=== PATIENT | female | born 1950 | race Caucasian/White ===

== ENCOUNTER 2017-10-13 13:12 | Observation (INO) | payer OTHER ==
[~2017-10-13] VITALS: Ht 147.3 cm; Wt 59.5 kg
[2017-10-13 14:01] LABS: ABSOLUTE BASOPHIL COUNT 0 /CUMM (0.0-0.2); ABSOLUTE EOSINOPHIL COUNT 0.4 /CUMM (0.0-0.7); ABSOLUTE GRANULOCYTE CT 2.4 /CUMM (1.4-6.5); ABSOLUTE LYMPH COUNT 1.8 /CUMM (1.2-3.4); ABSOLUTE MONOCYTE COUNT 0.3 /CUMM (0.10-0.60); BASOPHIL % 0.6 % (0.0-2.0); EOSINOPHIL % 8.6 % (0-5); GRANULOCYTE % 48.5 % (42.2-75.2); HEMATOCRIT 39.1 % (37-47); MEAN CORPUSCULAR HGB 30.9 PG (27.0-31.0); MEAN CORPUSCULAR HGB CONC 33.7 G/DL (33.0-37.0); MEAN CORPUSCULAR VOLUME 91.5 FL (81.0-99.0); MEAN PLATELET VOLUME 7.3 FL (7.4-10.4); PLATELET COUNT 349 /CUMM (130-400); RBC DISTRIBUTION WIDTH 13.1 % (11.5-14.5); RED BLOOD CELL CT 4.27 /CUMM (4.20-5.40)
[2017-10-13 14:11] LABS: PT 10.3 SEC (9.4-12.5); PTT 32 SEC (25-37)
--- NOTE | 2017-10-13 14:34 | CT SCAN REPORT ---
EXAMINATION: CT HEAD WITHOUT CONTRAST CLINICAL INFORMATION: Difficulty with speech. Words scramble. Evaluate for infarct. COMPARISON: Brain MRI 09/29/2017. TECHNIQUE: Contiguous axial imaging was performed from the skull base to vertex without intravenous administration of contrast. DLP: 620.92 mGy-cm FINDINGS: There is no acute intracranial hemorrhage or abnormal extra-axial collection. No intracranial mass effect or midline shift. Lateral and third ventricles are normal. No hydroceles. Tidwell-white matter differentiation is grossly preserved and there is no evidence of acute territorial infarct. The calvarium and skull base are intact. Mastoid air cells and middle ear cavities are well-aerated. There is mild to moderate paranasal sinus disease. IMPRESSION: No evidence of acute territorial infarct or hemorrhage.
--- NOTE | 2017-10-13 14:34 | RADIOLOGY REPORT ---
EXAMINATION: XR CHEST, 2 VIEWS CLINICAL INFORMATION: Cough. COMPARISON: None. TECHNIQUE: PA and lateral views of the chest were obtained. FINDINGS: There is mild dependent atelectasis. Nipple shadows are present at the lung bases. No consolidation, pneumothorax, or pleural effusion. Cardiac size appears normal. There is mild tortuosity thoracic aorta. Pulmonary vasculature is unremarkable. Degenerative disc disease is present in the thoracic spine. Osteoarthritis is present in the acromioclavicular joints. IMPRESSION: Mild dependent atelectasis. No acute pulmonary findings.
--- NOTE | 2017-10-13 16:09 | ED NEURO DEFICIT/STROKE ---
History of Present Illness General Chief Complaint: Neuro Symptoms/ Deficit Stated Complaint: WEAKNESS/NAUSEA HX TIA PALMA Source: patient, family, old records Exam Limitations: no limitations Vital Signs & Intake/Output Vital Signs & Intake/Output Vital Signs Date Time Temp Pulse Resp B/P B/P Pulse O2 O2 Flow FiO2 Mean Ox Delivery Rate 10/13 1323 96.1 88 18 138/104 99 Room Air Allergies Coded Allergies: Penicillins (Severe, THROAT CLOSING 10/13/17) Triage Note: RECEIVED 66 YO FEMALE C/O DIZZINESS, LIGHTHEADEDNESS AND VERTIGO SYMPTOMS SINCE MAY 2017. PT REPORTS DIFFICULTY FINDING WORDS, MUCH WORSE SINCE WEDNESDAY WITH DIZZINESS TODAY AND LIGHHEADEDNESS. NO SLURRED SPEECH NOTED, NO UNILATERAL WEAKNESS NOTED, + GENERALIZED WEAKNESS. PT STATES "EVERYTHING IS OUT OF FOCUS". Triage Nurses Notes Reviewed? yes HPI: Patient presents with room spinning dizziness associated with nausea vomiting or gait abnormalities that started this morning. Patient states on Wednesday she woke up and just felt out of it. Patient cannot really describe what she means by that but did not feel well Wednesday or Wednesday and then this morning woke up with room spinning dizziness. Patient is also having weeping in her ears. Patient states she has a history of vertigo and when she gets it Antivert never helps. Patient had an MRI last week as part of the workup for this intermittent vertigo that she gets and it showed chronic microvascular changes and lacunar infarcts. Patient states each episode of vertigo that she gets gets slightly worse. Patient lives at home alone and her daughter checks in on her. Her daughter talked her last week and everything was normal however when she talked her today she's noticed that the patient was very slow to respond and her voice sounded very thick. Her daughter became concerned because that it is not her mother. Patient was brought in for evaluation. Past History Travel History Traveled to [place] past 21 day No Medical History Any Pertinent Medical History? see below for history Neurological: CVA'S NOTED ON MRI EENT: NONE Cardiovascular: NONE Respiratory: NONE Gastrointestinal: NONE Hepatic: NONE Renal: NONE Musculoskeletal: NONE Psychiatric: NONE Endocrine: NONE Blood Disorders: NONE Cancer(s): NONE Other Medical Hx: VERTIGO Surgical History Surgical History: non-contributory Psychosocial History What is your primary language Persian Tobacco Use: Quit >30 days ago ETOH Use: denies use Illicit Drug Use: denies illicit drug use Family History Hx Contributory? No Review of Systems Review of Systems Constitutional: Reports: no symptoms. EENTM: Reports: no symptoms. Respiratory: Reports: no symptoms. Cardiovascular: Reports: no symptoms. GI: Reports: see HPI, nausea, vomiting. Genitourinary: Reports: no symptoms. Musculoskeletal: Reports: no symptoms. Skin: Reports: no symptoms. Neurological/Psychological: Reports: see HPI. Hematologic/Endocrine: Reports: no symptoms. Immunologic/Allergic: Reports: no symptoms. All Other Systems: Reviewed and Negative Physical Exam Physical Exam General Appearance: well developed/nourished, alert, awake, anxious, moderate distress Head: atraumatic, normal appearance Eyes: Bilateral: PERRL, EOMI. Ears, Nose, Throat: normal ENT inspection, DECREASED HEARING Neck: normal inspection, supple, full range of motion Respiratory: normal breath sounds, chest non-tender, no respiratory distress, lungs clear Cardiovascular: regular rate/rhythm, normal peripheral pulses Gastrointestinal: normal bowel sounds, soft, non-tender, no organomegaly Back: normal inspection, normal range of motion Extremities: normal range of motion Psychiatric: awake, alert, oriented x 3 Cranial Nerves: normal hearing, normal speech, PERRL Coordination/Gait: ABD GAIT Core Measures CVA/TIA Diagnosis: Yes NIH Stroke Scale NIH Stroke Scale Response Value Level of Consciousness alert 0 LOC Questions answers both correctly 0 LOC Commands obeys both correctly 0 Best Gaze normal 0 Visual Pearson no visual loss 0 Facial Paresis normal 0 Motor Arm - Left no drift 0 Motor Arm - Right no drift 0 Motor Leg - Left no drift 0 Motor Leg - Right no drift 0 Limb Ataxia no ataxia 0 Sensory normal 0 Best Language no aphasia 0 Dysarthria normal articulation 0 Extinction and Inattention no neglect 0 Total 0 Date Last Known Well: 10/11/17 Time Last Known Well: 1000 Symptom Start Date: 10/11/17 Symptom Start Time: 1000 tPA Risk/Benefit discussion I have discussed the risks, benefits, and alternatives of Alteplase treatment including: - If given promptly, can resolve or have major improvement in stroke symptoms. - Bleeding (hemorrhage) is the most common risk that can occur. - Bleeding may occur into the brain and cause~long wall shear operator serious disability~ including - this is rare, affecting about 1% of patients. - Alternative treatments with proven benefit for patients with stroke include aspirin and care in a specialized unit where staff members pay careful attention to a variety of basic aspects of care. tPA given? No Reason tPA not given Medical Contraindication Sepsis Present: No Sepsis Focused Exam Completed? No Progress Differential Diagnosis: drug intoxication, electrolyte imbalance, intracranial Hem., intracranial mass/tumor, seizure disorder, mNIRE'S Plan of Care: Orders Procedure Date/time Status Heart Healthy Diet 10/14 B Active Patient Data 10/[address] in observation 10/13 170 Active ED Holding Orders 10/13 1706 Active Vital Signs 10/13 170 Active Code Status 10/13 1706 Active TROPONIN LEVEL 10/13 132 Complete PARTIAL THROMBOPLASTIN TIME 10/135 Complete PROTHROMBIN TIME 10/13 1324 Complete COMPREHENSIVE METABOLIC PANEL 10/13 1324 Complete CBC WITHOUT DIFFERENTIAL 10/13 1324 Complete EKG 10/13 132 Active Laboratory Tests 10/13/17 1350: Anion Gap 12, Estimated GFR > 60, BUN/Creatinine Ratio 18.3, Glucose 109 H, Calcium 9.8, Total Bilirubin 0.5, AST 28, ALT 35, Alkaline Phosphatase 62, Troponin I < 0.01, Total Protein 7.3, Albumin 4.3, Globulin 3.0, Albumin/ Globulin Ratio 1.4, PT 10.3, INR 0.95, APTT 32, CBC w Diff NO MAN DIFF REQ, RBC 4.27, MCV 91.5, MCH 30.9, MCHC 33.7, RDW 13.1, MPV 7.3 L, Gran % 48.5, Lymphocytes % 35.5, Monocytes % 6.8, Eosinophils % 8.6 H, Basophils % 0.6, Absolute Granulocytes 2.4, Absolute Lymphocytes 1.8, Absolute Monocytes 0.3, Absolute Eosinophils 0.4, Absolute Basophils 0 Radiology Impression: PATIENT: VINCE BROOKS PRESENT AGE: 66 PATIENT ACCOUNT NO: [id number] : 52 LOCATION: [facility] ORDERING PHYSICIAN: Braydon DOMINGUEZ SERVICE DATE: 10/13/17 EXAM TYPE: CAT - CT HEAD WO IV CONTRAST EXAMINATION: CT HEAD WITHOUT CONTRAST CLINICAL INFORMATION: Difficulty with speech. Words scramble. Evaluate for infarct. COMPARISON: Brain MRI 09/29/2017. TECHNIQUE: Contiguous axial imaging was performed from the skull base to vertex without intravenous administration of contrast. DLP: 620.92 mGy-cm FINDINGS: There is no acute intracranial hemorrhage or abnormal extra-axial collection. No intracranial mass effect or midline shift. Lateral and third ventricles are normal. No hydroceles. Tidwell-white matter differentiation is grossly preserved and there is no evidence of acute territorial infarct. The calvarium and skull base are intact. Mastoid air cells and middle ear cavities are well-aerated. There is mild to moderate paranasal sinus disease. IMPRESSION: No evidence of acute territorial infarct or hemorrhage. DICTATED BY: Teddy West MD DATE/TIME DICTATED:10/13/171427 MONKEY BREEDER:RAD.WHITT DATE/TIME TRANSCRIBED:10/13/171427 CONFIDENTIAL, DO NOT COPY WITHOUT APPROPRIATE AUTHORIZATION. <Electronically signed in Other Vendor System> SIGNED BY: Teddy West MD 10/13/171433 CXR Impression: PATIENT: VINCE BROOKS PRESENT AGE: 66 PATIENT ACCOUNT NO: [id number] : 52 LOCATION: [facility] ORDERING PHYSICIAN: Braydon DOMINGUEZ SERVICE DATE: 10/13/17 EXAM TYPE: RAD - XRY-CHEST XRAY, TWO VIEWS EXAMINATION: XR CHEST, 2 VIEWS CLINICAL INFORMATION: Cough. COMPARISON: None. TECHNIQUE: PA and lateral views of the chest were obtained. FINDINGS: There is mild dependent atelectasis. Nipple shadows are present at the lung bases. No consolidation, pneumothorax, or pleural effusion. Cardiac size appears normal. There is mild tortuosity thoracic aorta. Pulmonary vasculature is unremarkable. Degenerative disc disease is present in the thoracic spine. Osteoarthritis is present in the acromioclavicular joints. IMPRESSION: Mild dependent atelectasis. No acute pulmonary findings. DICTATED BY: Humza Akins MD DATE/TIME DICTATED:10/13/171428 MONKEY BREEDER:RAD.WHITT DATE/TIME TRANSCRIBED:10/13/171428 CONFIDENTIAL, DO NOT COPY WITHOUT APPROPRIATE AUTHORIZATION. <Electronically signed in Other Vendor System> SIGNED BY: Humza Akins MD 10/13/171433 Initial ED EKG: NSR, no ST T wave changes Departure Departure Disposition: STILL A PATIENT Condition: Stable Clinical Impression Primary Impression: Vertigo Referrals: Andrea Maldonado MD (PCP/Family) Departure Forms: Customer Survey General Discharge Information Observation Note Spoke With: Aries Jha MD Physician Advisor Notified: BOBBY COX,[facility] Patient In: Non-ED OBS Care Area Rationale for Observation: My rational for observation is as follows [IV fluids, antiemetics, Valium, neurology consultation, PT consultation, possible repeat MRI for her new symptoms.].
--- NOTE | 2017-10-13 17:51 | History & Physical ---
Delilah COX,[facility] 10/13/17 6828: General Information and [facility] MD Statement: I have seen and personally examined VINCE GUO and documented this H&P. The patient is a 66 year old F who presented with a patient stated chief complaint of [severe dizziness]. Source of Information: patient Exam Limitations: no limitations History of Present Illness: Ms. Guo a 66 year old female with past medical history significant for ADHD not on medication, hyperlipidemia not on medication, depression, right hand carpal tunnel, vertigo since May 2017. Patient reported frequent episodes of vertigo since May with no precipitating factors. Patient used to have sudden onset of dizziness "room spining", severe nausea and vomiting, right ear tinnitus however patient reported previous history prior of her tinnitus prior to vertigo that's getting worse with time, she reported as "double tanning for in my right ear". This episode started on Wednesday, vertigo positional and non-positional, nausea, vomiting, right ear tinnitus, generalized weakness, episodic confusion, headache. Patient didn't use any medication, today she noticed some blurry vision while watching TV and generalized weakness and decided to come to ED for evaluation. Patient denied any focal weakness, numbness, syncopal attack, falls , chest pain, palpitation, shortness of breath. Patient denied any previous hospitalization, started with Davian Maldonado MD PCP for a year and he ordered MRI in August 2017 which showed chronic lacunar infarction in the right basal ganglia. Patient and ex-smoker quit year ago, has history of 50 years smoking, half pack per day. Occasional alcohol use, no illicit drugs. Patient reported family history of severe vertigo in her father, melanoma. Allergies/Medications Allergies: Coded Allergies: Penicillins (Severe, THROAT CLOSING 10/13/17) Past History Travel History Traveled to [place] past 21 day No Medical History Neurological: vertigo, CVA'S NOTED ON MRI EENT: NONE Cardiovascular: NONE Respiratory: NONE Gastrointestinal: NONE Hepatic: NONE Renal: NONE Musculoskeletal: NONE Psychiatric: depression, ADHD Endocrine: NONE Blood Disorders: NONE Cancer(s): NONE Surgical History Surgical History: none Past Family/Social History Psychosocial History Where do you live? Home Who Do You Live With? self Services at Home: None Primary Language: Icelandic Smoking Status: Former Smoker ETOH Use: occasional use Illicit Drug Use: denies illicit drug use Living Will? no Functional Ability ADLs Independent: dressing, eating, toileting, bathing. Ambulation: independent IADLs Independent: shopping, housework, finances, food prep, telephone, transportation , medication admin. Review of Systems Review of Systems Constitutional: Reports: see HPI, weakness. Denies: chills, diaphoresis, fever. EENTM: Reports: blurred vision. Denies: eye drainage, eye tearing, nasal pain. Cardiovascular: Denies: chest pain, edema, orthopena, palpitations, peripheral edema, syncope. Respiratory: Reports: cough. Denies: short of breath, sputum production, wheezing. GI: Denies: abdominal pain, constipation, diarrhea, nausea, vomiting. Genitourinary: Denies: discharge, frequency, hematuria. Musculoskeletal: Denies: back pain, joint pain, joint swelling, muscle pain. Skin: Denies: erythema, rash. Neurological/Psychological: Reports: confusion, headache. Denies: dementia, numbness. Hematologic/Endocrine: Denies: bruising, bleeding. Exam & Diagnostic Data Last 24 Hrs of Vital Signs/I&O Vital Signs Date Time Temp Pulse Resp B/P B/P Pulse O2 O2 Flow FiO2 Mean Ox Delivery Rate 10/13 1836 97.2 75 18 136/73 100 10/13 1805 99 Room Air 10/13 1323 96.1 88 18 138/104 99 Room Air Intake & Output 10/13 1600 10/13 0800 10/13 0000 Intake Total Output Total Balance Patient 58.513 kg Weight Weight Estimated Measurement Method Physical Exam General Appearance Alert, Oriented X3, Cooperative, No Acute Distress Skin No Rashes Skin Temp/Moisture Exam: Warm/Dry HEENT Atraumatic, PERRLA, EOMI, Mucous Membr. moist/pink, no nystagmus Neck Supple, +2 Carotid Pulse wo Bruit Cardiovascular Regular Rate, Normal S1, Normal S2, No Murmurs Lungs Clear to Auscultation, Normal Air Movement Abdomen Normal Bowel Sounds, Soft, No Tenderness Neurological Normal Gait, Normal Speech, Strength at 5/5 X4 Ext, Normal Tone, Sensation Intact, Cranial Nerves 3-12 NL, Reflexes 2+, finger to nose test negative Dysdiadochokinesia negative Extremities No Clubbing, No Cyanosis, No Edema, Normal Pulses, No Tenderness/ Swelling Assessment/Plan Assessment: Ms. Pinciaro a 66 year old female with past medical history significant for ADHD not on medication, hyperlipidemia not on medication, depression, right hand carpal tunnel, vertigo since May 2017. Patient reported an episode that started on Wednesday, vertigo positional and non-positional, nausea, vomiting, right ear tinnitus, generalized weakness, episodic confusion, headache. Vital signs are stable, labs are within normal, chest x-ray showed some atelectasis but no acute changes, CT head negative for any acute intracranial changes. Patient received Valium in ED with resolution of her symptoms. Patient will be admitted to telemetry floor to rule out any cardiac origin of dizziness such as arrhythmia, TIA or posterior circulation stroke however her symptoms and exam more towards inner ear etiology like meniere's disease. Neurological exam including cerebellar function and Romberg sign negative. Problem list #Vertigo #Tinnitus #Mixed dyslipidemia #History of lacunar infarction in right basal ganglia Plan -Observe in telemetry floor -Vitals every shift -Aspirin, Lipitor -Check lipid profile -Neurology consultation -Carotid ultrasound -Will contact neuroradiology tomorrow for optimal study for vestibular neuroma and probably CTA or MRA -Patient passed bedside swallow eval -Heart healthy diet -PT evaluation for vestibular rehabilitation -DVT prophylaxis Lovenox -Code full As Ranked By This Provider Problem List: 1. Vertigo Observation Initial Note - I have personally examined VINCE GUO on 10/13/17 at 2013. The disposition of VINCE GUO is uncertain at this time and before a determination can be made, she requires a period of observation for the following reasons [dizziness] Core Measures/Misc (01/17) Acute Coronary Syndrome ACS Diagnosis: No Congestive Heart Failure Congestive Heart Failure Diagnosis No Cerebrovascular Accident CVA/TIA Diagnosis: No Date Last Known Well: 10/11/17 Time Last Known Well: 1000 Symptom Start Date: 10/11/17 Symptom Start Time: 1000 VTE (View Protocol) VTE Risk Factors Age>40 No Mechanical VTE Prophylaxis d/t N/A MechProphylax Ordered No VTE Pharm Prophylaxis d/t NA PharmProphylax ordered Sepsis (View protocol) Sepsis Present: No If YES complete Sepsis Event Note If YES complete Sepsis Event Note Aries Jha MD 10/13/17 5295: General Information and HPI Allergies/Medications Home Med list Alprazolam (Alprazolam Odt) 0.25 MG TAB.RAPDIS 1 TAB PO BID PRN Dizziness . Aspirin (Ecotrin*) 81 MG TABLET.DR 1 TAB PO DAILY HEART/BLOOD (Reported) Atorvastatin Calcium 40 MG TABLET 40 MG PO 1700 Cholesterol . Loratadine (Claritin) 10 MG TABLET 1 TAB PO DAILY Meniere's Disease . Multiple Vitamin (Multivitamins) 1 EACH TABLET 1 TAB PO DAILY SUPPLEMENT ( Reported) Ondansetron (Zofran Odt) 4 MG TAB.RAPDIS 1 TAB SL TID PRN Dizziness or nausea . Core Measures/Misc (01/17) Sepsis (View protocol) If YES complete Sepsis Event Note If YES complete Sepsis Event Note Attending MD Review Statement Attending Statement Attending MD Statement: examined this patient, discuss w/resident/PA/TELEGRAPH INSPECTOR, agreed w/resident/PA/TELEGRAPH INSPECTOR, reviewed EMR data (avail), reviewed images, amended to note Attending Assessment/Plan: The patient is a 66 yo female with h/o ADHD (no meds), hyperlipidemia, and depression who presented in the ED with c/o severe vertigo. The patient describes symptoms since 05/2017 and did undergo an outpatient MRI via her PCP ( Dr. Maldonado) in 09/17. The study did show chronic lacunar infarcts in the right basal ganglia. She denied any focal symptoms (generalized weakness noted) although states her balance has been off. She lives alone and symptoms have become more severe. She has had some right ear tinnitus and nausea. She has been taking ASA 81 mg daily x 2 weeks. Daughter noted some word finding difficulties. She has tried Antivert with no relief. Her daughter noted some speech abnormality today and became concerned. Physical Exam: VS: T 97.2, P 75, R 18, BP 136/74, PO 99-100% RA HEENT: eyes- PERRLA, EOMI w/o nystagmus jai- normal mucosa Neck: no bruits, JVD or adenopathy Chest: clear Cor: RRR nl S1, S2 w/o murm Abd: BS+, soft, NT, - HSM Ext: no edema Neuro: alert & oriented x 3- symptoms improved post Ativan- motor/sensory/DTR's/ FTN/HTS intact- gait not tested by me (abnormal per ED), - [place]-Halpike maneuver. Labs/Tests- as above Impression/Plan: #Severe Vertigo/Loss of Balance/Tinnitus-symptoms have been ongoing since 05/20 and worse just prior to admission. No nystagmus on exam. Duration of symptoms would suggest against BPPV. She did have MRI last week showing right basal ganglia infarcts and has worsening symptoms. Would still consider posterior circulation CVA as possible cause. Although no reported loss of hearing, acoustic neuroma is a possibility as well as Meniere's Disease. Plan: Will bring in as OBServation patient to telemetry floor. Monitor VS and q4h neuro checks. Observe for arrhythmia. Continue ASA. Will discuss prior MRI with Neuroradiology in morning and consider repeat MRI as symptoms are worse- will also see if specific MRI of inner ear may be useful in excluding acoustic neuroma. Neurology and PT consults. Lipitor' Diazepam for severe vertigo. #Hyperlipidemia- noted on OP labs. LDL today is 157 with Total chol 267 and HDL 84. Plan: Agree with Lipitor.
[2017-10-13] MEDS ORDERED: MULTIVITAMINS1 EAC9 PO (19:49)
[2017-10-13] MEDS ORDERED: BUPROPION XL300 M1 PO (19:49)
[2017-10-13] MEDS ORDERED: ASPIRIN EC81 M1 PO (19:50)
[2017-10-13 22:57] VITALS: BP 116/70
[2017-10-14 06:16] VITALS: BP 120/50
--- NOTE | 2017-10-14 08:08 | ULTRASOUND REPORT ---
EXAMINATION: DUPLEX BILATERAL CAROTID ULTRASOUND CLINICAL INFORMATION: Dizziness. COMPARISON: No similar prior examinations available for comparison. TECHNIQUE: Real-time ultrasound and Doppler techniques (integrating B-mode 2D vascular images, Doppler spectral analysis and color flow Doppler imaging) were utilized to interrogate the extracranial carotid and vertebral arteries bilaterally. The degree of stenosis determined by criteria similar to NASCET. FINDINGS: Right side: 1. No appreciable plaque is seen in the ECA/ICA region. 2. The common carotid artery velocity is 83 cm/s. 3. The internal carotid artery velocities are 72 cm/s systolic and 29 cm/s diastolic. 4. The external carotid artery velocity is 111 cm/s. Left side: 1. No appreciable plaque is seen in the ECA/ICA region. 2. The common carotid artery velocity is 97 cm/s. 3. The internal carotid artery velocities are 69 cm/s systolic and 19 cm/s diastolic. 4. The external carotid artery velocity is 67 cm/s. ADDITIONAL FINDINGS: 1. The vertebral arteries show antegrade flow. IMPRESSION: 1. RIGHT: No significant stenosis of the proximal right internal carotid artery by velocity criteria. 2. LEFT: No significant stenosis of the proximal left internal carotid artery by velocity criteria. 3. No evidence for hemodynamically significant stenosis in the external carotid arteries.
--- NOTE | 2017-10-14 08:19 | PN- Housestaff ---
See Addendum Subjective Follow-up For: Vertigo Tele-Events Since Last Visit: Normal sinus rhythm, 6080 Subjective: Patient was admitted last night with vertigo. She has been having these symptoms about once every week or so since May. She describes getting dizzy like the room is spinning with nausea, vomiting, and tinnitus in the right ear. This tinnitus have been has been going on for about 10 years. In between the episodes she feels perfectly normal without any symptoms or issues with balance or coordination. This morning, her symptoms are resolved and she feels perfectly fine. Review of Systems Constitutional: Reports: no symptoms. EENTM: Reports: no symptoms. Cardiovascular: Reports: no symptoms. Respiratory: Reports: no symptoms. Gastrointestinal: Reports: no symptoms. Genitourinary: Reports: no symptoms. Musculoskeletal: Reports: no symptoms. Skin: Reports: no symptoms. Neurological/Psychological: Reports: no symptoms. Hematologic/Endocrine: Reports: no symptoms. Immunologic/Allergic: Reports: no symptoms. Objective Last 24 Hrs of Vital Signs/I&O Vital Signs Date Time Temp Pulse Resp B/P B/P Pulse O2 O2 Flow FiO2 Mean Ox Delivery Rate 10/14 0616 97.9 71 18 120/50 93 10/13 2257 97.7 80 18 116/70 95 Room Air 10/13 2141 Room Air 10/13 2029 98.6 88 16 116/63 95 Room Air 10/13 1836 97.2 75 18 136/73 100 10/13 1805 99 Room Air 10/13 1323 96.1 88 18 138/104 99 Room Air Intake & Output 10/14 1600 10/14 0800 10/14 0000 Intake Total 120 1120 Output Total Balance 120 1120 Intake, IV 1000 Intake, Oral 120 120 Patient 57.153 kg Weight Weight Bed scale Measurement Method Physical Exam General Appearance: Alert, Oriented X3, Cooperative, No Acute Distress HEENT: Horizontal nyastagmus without vertical nystagmus, head impulse test negative. No focal neurological deficits. Cardiovascular: Regular Rate, Normal S1, Normal S2 Lungs: Clear to Auscultation, Normal Air Movement Extremities: No Edema, Normal Pulses, No Tenderness/Swelling Current Medications: Current Medications Sig/Angle Start time Last Medication Dose Route Stop Time Status Admin Acetaminophen 650 MG Q6P PRN 10/13 1914 AC PO Aspirin 0 .STK-MED ONE 06/13 1921 DC PO Aspirin 81 MG DAILY 10/13 1908 AC 10/14 PO 0816 Atorvastatin Calcium 20 MG 1700 10/14 1700 DC PO Atorvastatin Calcium 40 MG 10/14 1700 AC PO Diazepam 0 .STK-MED ONE 10/13 1717 DC PO Diazepam 5 MG ONCE ONE 10/13 1630 DC 10/13 PO 10/13 1631 1712 Enoxaparin Sodium 40 MG DAILY 10/14 0900 AC 10/14 SC 0817 Ondansetron HCl 0 .STK-MED ONE 10/13 1717 DC .ROUTE Ondansetron HCl 4 MG ONCE ONE 10/13 1630 DC 10/13 IV 10/13 1631 1753 Sodium Chloride 1,000 ML BOLUS ONE 10/13 1630 DC 10/13 IV 10/13 1729 1753 Last 24 Hrs of Lab/Surendra Results Last 24 Hrs of Labs/Mics: Laboratory Tests 10/13/17 1350: Anion Gap 12, Estimated GFR > 60, BUN/Creatinine Ratio 18.3, Glucose 109 H, Calcium 9.8, Total Bilirubin 0.5, AST 28, ALT 35, Alkaline Phosphatase 62, Troponin I < 0.01, Total Protein 7.3, Albumin 4.3, Globulin 3.0, Albumin/ Globulin Ratio 1.4, Triglycerides 134, Cholesterol 267 H, LDL Cholesterol, Calc 157 H, HDL Cholesterol 84 H, Cholesterol/HDL Ratio 3, TSH 1.270, PT 10.3, INR 0.95, APTT 32, CBC w Diff NO MAN DIFF REQ, RBC 4.27, MCV 91.5, MCH 30.9, MCHC 33.7, RDW 13.1, MPV 7.3 L, Gran % 48.5, Lymphocytes % 35.5, Monocytes % 6.8, Eosinophils % 8.6 H, Basophils % 0.6, Absolute Granulocytes 2.4, Absolute Lymphocytes 1.8, Absolute Monocytes 0.3, Absolute Eosinophils 0.4, Absolute Basophils 0 Assessment/Plan Assessment: Ms. Guo s a 66 yo female with h/o ADHD (no meds), hyperlipidemia, and depression who presented in the ED with c/o severe vertigo. Problem List: 1. Vertigo #Vertigo: Patient presents with episodic vertigo over the past 6 months with complete resolution of symptoms in between episodes. The episodes involve dizziness with room spinning, tinnitus, nausea, vomiting, forcing her to lie down. This is highly suspicious for Mnire's disease. She does have chronic basal ganglia infarcts on MRI in August of this year but does not have any symptoms from this right now. Her neuro exam is benign including HINTS exam. Carotid Dopplers were negative. -MRI with and without contrast head with internal auditory protocol -Neurology recommendations appreciated -Ondansetron for nausea -Consider meclizine for dizziness #Chronic medical problems: -Continue other medications DVT prophylaxis with enoxaparin Heart healthy diet Full code Problem List: 1. Vertigo Pain Ratin Pain Location: no Pain Goal: Remain pain free Pain Plan: see a/p Tomorrow's Labs & Rationales: no
--- NOTE | 2017-10-14 13:06 | MRI REPORT ---
MR BRAIN WITHOUT AND WITH CONTRAST CLINICAL INFORMATION: Severe right ear tinnitus and vertigo. COMPARISON: Brain MRI September 29, [address] October 13, 2017. TECHNIQUE: MRI of the brain was obtained using routine sequences before and after the intravenous administration of 6 mL of Gadavist. FINDINGS: The inner ear structures including the cochlea, vestibules, and semicircular canals exhibit preserved CSF signal intensity with no pathologic enhancement. The vestibular aqueducts are not enlarged. Cranial nerves VII and VIII complexes are normal in morphology. No enhancing CP angle/retrocochlear lesion. Small superiorly projecting left jugular bulb diverticulum. There is no pathologic intracranial enhancement. Small incidental developmental venous anomaly within the high left frontal lobe. Etat crible appearance of the basal ganglia bilaterally as the sequela of chronic hypertension. No acute infarct on diffusion-weighted imaging. No hydrocephalus, extra-axial surface collection, or herniation. There are T2 signal changes within the central lyudmila and to lesser extent the supratentorial white matter, most likely chronic microangiopathy. The midline intracranial structures are normal. Cerebellar tonsils are normally positioned. Craniocervical junction is normal. Osseous marrow signal intensity remains homogeneous. No significant soft tissue abnormality is appreciated. IMPRESSION: - No acute intracranial findings. No acute infarcts, no enhancing lesions, and no retrocochlear pathology. - Chronic microangiopathy. Etat crible appearance of the basal ganglia bilaterally as the sequela of chronic hypertension.
[2017-10-14 14:00] VITALS: BP 124/78
--- NOTE | 2017-10-14 15:50 | PN- Student ---
Subjective Subjective: Ms. Rasmussen is a 66 y/o female with a PMH of ADHD (not on medications), HLD, depression, R sided deafness and R sided chronic tinnitus, that comes to the ED because of severe vertigo. On May she started having episodes of feeling like "the room was spinning", accompanied by headaches, (which she describes as "hangover headaches") that covered her entire head, nausea, vomiting, diarrhea and photophobia. These headaches weren't preceded by any other symptoms, were only relieved by lying down and closing her eyes and were worsened by movement. She denies any phonophobia, but agrees to confusion, weakness and changes in vision. The episodes will last from hours up to 3 days. After this episode of 3 days (which ocurred last month), she went to her PCP who ordered an MRI without contrast that showed chronic lacunar infarction in the right basal ganglia. Patient states that she has always been hard of hearing, since an early age and when she went to the doctor as a grownup to check her hearing, she had lost 75% of her hearing, which only worsened as the years went by until a couple of years ago in which she lost her hearing completely. Patient also states that she has had tinnitus for 10 yrs and that for approximately one year, she hears like a double frequency of sounds ("instead of one tuning fork, I started hearing two). She said that sometimes it would wake her up from her sleep, and that she has tinnitus /. PMH: ADHD, depression, HLD, CVA's noted on MRI, migraines (in her 20's), "pains and needles" pain in her right hand and wrist after continuous activity. Allergies: Penicillin (anaphylaxis) MEDS: Aspirin (Ecotrin*) 81 MG TABLET.DR 1 TAB PO DAILY HEART/BLOOD (Reported) Bupropion HCl (Bupropion XL) 300 MG TAB.ER.24H 1 TAB PO DAILY DEPRESSION ( Reported) Multiple Vitamin (Multivitamins) 1 EACH TABLET 1 TAB PO DAILY SUPPLEMENT ( Reported) FH: Dad, severe vertigo, melanoma SH: Tonsillectomy, adenoidectomy SH: 25 pack yrs, quit a yr ago, social drinker, denies illicit drug use. 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 ROS: Pertinent positives and negatives on HPI. Rest is negative. Objective Objective: Vital Signs Date Time Temp Pulse Resp B/P B/P Pulse O2 O2 Flow FiO2 Mean Ox Delivery Rate 10/14 1400 97.9 62 20 124/78 96 10/14 0800 Room Air 10/14 0616 97.9 71 18 120/50 93 10/13 2257 97.7 80 18 116/70 95 Room Air 10/13 2141 Room Air 10/13 2029 98.6 88 16 116/63 95 Room Air 10/13 1836 97.2 75 18 136/73 100 10/13 1805 99 Room Air ED Intake and Output 10/14 0000 10/13 1200 Intake Total 1120 Output Total Balance 1120 Intake, IV 1000 Intake, Oral 120 Patient 126 lb Weight Weight Bed scale Measurement Method PE: Patient is an amiable lady, alert, cooperative and oriented x3. Normal S1 and S2 were heard with no additional murmurs. Pulse was regular and +2. On lung auscultation, vesicular sounds were heard. Skin was warm, dry with no visible rashes. Abdomen was soft, nontender, with no rebound or guarding. Normal bowel sounds were heard. CN III- were normal. HINTS exam was non conclusive. Results Results: Laboratory Tests 10/13/17 1350: Anion Gap 12, Estimated GFR > 60, BUN/Creatinine Ratio 18.3, Glucose 109 H, Calcium 9.8, Total Bilirubin 0.5, AST 28, ALT 35, Alkaline Phosphatase 62, Troponin I < 0.01, Total Protein 7.3, Albumin 4.3, Globulin 3.0, Albumin/ Globulin Ratio 1.4, Triglycerides 134, Cholesterol 267 H, LDL Cholesterol, Calc 157 H, HDL Cholesterol 84 H, Cholesterol/HDL Ratio 3, TSH 1.270, PT 10.3, INR 0.95, APTT 32, CBC w Diff NO MAN DIFF REQ, RBC 4.27, MCV 91.5, MCH 30.9, MCHC 33.7, RDW 13.1, MPV 7.3 L, Gran % 48.5, Lymphocytes % 35.5, Monocytes % 6.8, Eosinophils % 8.6 H, Basophils % 0.6, Absolute Granulocytes 2.4, Absolute Lymphocytes 1.8, Absolute Monocytes 0.3, Absolute Eosinophils 0.4, Absolute Basophils 0 10/13/17 1325: Lyme Disease Antibody Pending IMAGING: CXR: IMPRESSION: Mild dependent atelectasis. No acute pulmonary findings. HEAD CT: IMPRESSION: No evidence of acute territorial infarct or hemorrhage. CAROTID DOPPLER US: IMPRESSION: 1. RIGHT: No significant stenosis of the proximal right internal carotid artery by velocity criteria. 2. LEFT: No significant stenosis of the proximal left internal carotid artery by velocity criteria. 3. No evidence for hemodynamically significant stenosis in the external carotid arteries. HEAD MRI: IMPRESSION: - No acute intracranial findings. No acute infarcts, no enhancing lesions, and no retrocochlear pathology. - Chronic microangiopathy. Etat crible appearance of the basal ganglia bilaterally as the sequela of chronic hypertension. Assessment/Plan Assessment: Ms. Rasmussen is a 66 y/o female with a PMH of ADHD (not on medications), HLD, depression, R sided deafness and R sided chronic tinnitus, that comes to the ED because of severe vertigo. On May she started having episodes of feeling like "the room was spinning", accompanied by headaches, (which she describes as "hangover headaches") that covered her entire head, nausea, vomiting, diarrhea and photophobia. These headaches weren't preceded by any other symptoms, were only relieved by lying down and closing her eyes and were worsened by movement. She denies any phonophobia, but agrees to confusion, weakness and changes in vision. The episodes will last from hours up to 3 days. Problem list and plan: * Severe vertigo accompanied by headaches, N/V/D: Differential diagnosis include : vestibular migraines, Mnire's disease, acute stroke or APV. HINTS exam was performed and I couldn't find anything that would suggest an acute stroke (no bidirectional nystagmus, normal test of skew) or APV (no unidirectional nystagmus, normal head impulse test). Also, MRI didn't show evidence of stroke ( it did show etat crible, which is confusing as patient doesn't have a history of HTN). Mnire's disease seems more likely as patient has had tinnitus for a decade and complete loss of hearing. Also, it presents with a genetic predisposition and her father had a history of severe vertigo as well. Moreover, patient states accompanying headache with these episodes and is known that migraine is more common in patients with Mnire's. Nausea and vomiting is associated with Mnire's disease, but the episodes don't last more than 24 hrs and our patient states up to 3 days duration of her symptoms. On the other hand, the photophobia, N/V/D, speech disturbances, motor weakness, visual changes and duration of episodes, point more to a vestibular migraine. The headache seems to be generalized to her whole head though, which is uncommon with migraine headaches. Furthermore, although tinnitus is commonly associated with vestibular migraines, loss of hearing is not. Neurology consult was requested. Awaiting for their input before discharge. For now, administer Ondansetron for nausea and Meclizine for dizziness as needed. * HLD: Patient's cholesterol levels were high, so Lipitor was started. Patient should follow a heart healthy diet and follow up with her PCP. * Depression: Continue home meds.
--- NOTE | 2017-10-14 16:21 | Cons- Neurology ---
General Information and HPI Consulting Request Date of Consult: 10/14/17 Requested By: Barbara Munoz MD History of Present Illness: 66-year-old female has had repetitive episodes of vertigo over approximately the past 6 months These episodes are relatively stereotyped She has very quick onset of severe vertigo accompanied by imbalance and persistent vomiting There no clear-cut precipitating or aggravating factors She has hearing loss on the right side which she stated was present since childhood years but has been progressive recently She also has persistent tinnitus on that side which may increase in intensity when she has a vertiginous episode Episodes usually last 1-3 days in duration There's been one episode of mild head trauma She usually does not fall since walking is very limited during the vertiginous event Allergies/Medications Allergies: Coded Allergies: Penicillins (Severe, THROAT CLOSING 10/13/17) Home Med List: Aspirin (Ecotrin*) 81 MG TABLET.DR 1 TAB PO DAILY HEART/BLOOD (Reported) Bupropion HCl (Bupropion XL) 300 MG TAB.ER.24H 1 TAB PO DAILY DEPRESSION ( Reported) Multiple Vitamin (Multivitamins) 1 EACH TABLET 1 TAB PO DAILY SUPPLEMENT ( Reported) Current Medications: Current Medications Sig/Angle Start time Last Medication Dose Route Stop Time Status Admin Acetaminophen 650 MG Q6P PRN 10/13 1915 AC PO Aspirin 0 .STK-MED ONE 10/13 1921 DC PO Aspirin 81 MG DAILY 10/13 1908 AC 10/14 PO 0816 Atorvastatin Calcium 20 MG 1700 10/14 1700 DC PO Atorvastatin Calcium 40 MG 1700 10/14 1700 AC PO Diazepam 0 .STK-MED ONE 10/13 1717 DC PO Diazepam 5 MG ONCE ONE 10/13 1630 DC 10/13 PO 10/13 1631 1712 Enoxaparin Sodium 40 MG DAILY 10/14 0900 AC 10/14 SC 0817 Ondansetron HCl 0 .STK-MED ONE 10/13 1717 DC .ROUTE Ondansetron HCl 4 MG ONCE ONE 10/13 1630 DC 10/13 IV 10/13 1631 1753 Sodium Chloride 1,000 ML BOLUS ONE 10/13 1630 DC 10/13 IV 10/13 1729 1753 Review of Systems Review of Systems: No headache, diplopia, speech or swallowing difficulty Weight increase 15 pounds since she stopped smoking, no chest pain, shortness of breath, abdominal pain No incontinence, significant swelling, focal weakness Other systems reviewed and negative Past History Travel History Traveled to [place] past 21 day No Medical History Neurological: vertigo, CVA'S NOTED ON MRI EENT: NONE Cardiovascular: NONE Respiratory: NONE Gastrointestinal: NONE Hepatic: NONE Renal: NONE Musculoskeletal: NONE Psychiatric: depression, ADHD Endocrine: NONE Blood Disorders: NONE Cancer(s): NONE Other Medical Hx: VERTIGO Surgical History Surgical History: 1 Psychosocial History Where Do You Live? Home Who Do You Live With? self Services at Home: None Primary Language: Ivorian Smoking Status: Former Smoker ETOH Use: occasional use Illicit Drug Use: denies illicit drug use Living Will? no Functional Ability ADLs Independent: dressing, eating, toileting, bathing. Ambulation: independent IADLs Independent: shopping, housework, finances, food prep, telephone, transportation , medication admin. Exam & Diagnostic Data Vital Signs and I&O Vital Signs Date Time Temp Pulse Resp B/P B/P Pulse O2 O2 Flow FiO2 Mean Ox Delivery Rate 10/14 1400 97.9 62 20 124/78 96 10/14 0800 Room Air 10/14 0616 97.9 71 18 120/50 93 10/13 2257 97.7 80 18 116/70 95 Room Air 10/13 2141 Room Air 10/13 2029 98.6 88 16 116/63 95 Room Air 10/13 1836 97.2 75 18 136/73 100 10/13 1805 99 Room Air Intake & Output 10/14 1600 10/14 0800 10/14 0000 Intake Total 454 283 5652 Output Total Balance 617 302 2997 Intake, IV 1000 Intake, Oral 480 120 120 Patient 126 lb Weight Weight Bed scale Measurement Method Physical Exam: Alert and oriented Language functions fund of knowledge attention span concentration recall intact Heart sounds normal no carotid bruits distal pulses intact Extraocular movements full pupils equal reactive fundi benign visual french intact no facial weakness or facial sensory loss palate tongue and shoulders intact Hearing impaired on the right side Normal tone and strength upper and lower extremities No sensory loss to light touch Deep tendon reflexes 1+ bilateral Coordinative functions and gait intact Last 48 Hours of Lab Results: Laboratory Tests 10/13 10/13 1350 1325 Chemistry Sodium (137 - 145 mmol/L) 141 Potassium (3.5 - 5.1 mmol/L) 4.3 Chloride (98 - 107 mmol/L) 103 Carbon Dioxide (22 - 30 mmol/L) 27 Anion Gap (5 - 16) 12 BUN (7 - 17 mg/dL) 11 Creatinine (0.5 - 1.0 mg/dL) 0.6 Estimated GFR (>60 ml/min) > 60 BUN/Creatinine Ratio (7 - 25 %) 18.3 Glucose (65 - 99 mg/dL) 109 H Calcium (8.4 - 10.2 mg/dL) 9.8 Total Bilirubin (0.2 - 1.3 mg/dL) 0.5 AST (14 - 36 U/L) 28 ALT (9 - 52 U/L) 35 Alkaline Phosphatase (<127 U/L) 62 Troponin I (< 0.11 ng/ml) < 0.01 Total Protein (6.3 - 8.2 g/dL) 7.3 Albumin (3.5 - 5.0 g/dL) 4.3 Globulin (1.9 - 4.2 gm/dL) 3.0 Albumin/Globulin Ratio (1.1 - 2.2 %) 1.4 Triglycerides (<150 mg/dL) 134 Cholesterol (<200 MG/DL) 267 H LDL Cholesterol, Calc (65 - 129 mg/dL) 157 H HDL Cholesterol (40 - 60 mg/dL) 84 H Cholesterol/HDL Ratio (0.00 - 4.23 %) 3 TSH (0.270 - 4.200 uIU/mL) 1.270 Coagulation PT (9.4 - 12.5 SEC) 10.3 INR (0.90 - 1.19) 0.95 APTT (25 - 37 SEC) 32 Hematology CBC w Diff NO MAN DIFF REQ WBC (4.8 - 10.8 /CUMM) 5.0 RBC (4.20 - 5.40 /CUMM) 4.27 Hgb (12.0 - 16.0 G/DL) 13.2 Hct (37 - 47 %) 39.1 MCV (81.0 - 99.0 FL) 91.5 MCH (27.0 - 31.0 PG) 30.9 MCHC (33.0 - 37.0 G/DL) 33.7 RDW (11.5 - 14.5 %) 13.1 Plt Count (130 - 400 /CUMM) 349 MPV (7.4 - 10.4 FL) 7.3 L Gran % (42.2 - 75.2 %) 48.5 Lymphocytes % (20.5 - 51.1 %) 35.5 Monocytes % (1.7 - 9.3 %) 6.8 Eosinophils % (0 - 5 %) 8.6 H Basophils % (0.0 - 2.0 %) 0.6 Absolute Granulocytes (1.4 - 6.5 /CUMM) 2.4 Absolute Lymphocytes (1.2 - 3.4 /CUMM) 1.8 Absolute Monocytes (0.10 - 0.60 /CUMM) 0.3 Absolute Eosinophils (0.0 - 0.7 /CUMM) 0.4 Absolute Basophils (0.0 - 0.2 /CUMM) 0 Serology Lyme Disease Antibody Pending Imaging/Other Studies: MRI brain INDINGS: The inner ear structures including the cochlea, vestibules, and semicircular canals exhibit preserved CSF signal intensity with no pathologic enhancement. The vestibular aqueducts are not enlarged. Cranial nerves VII and VIII complexes are normal in morphology. No enhancing CP angle/retrocochlear lesion. Small superiorly projecting left jugular bulb diverticulum. There is no pathologic intracranial enhancement. Small incidental developmental venous anomaly within the high left frontal lobe. Etat crible appearance of the basal ganglia bilaterally as the sequela of chronic hypertension. No acute infarct on diffusion-weighted imaging. No hydrocephalus, extra-axial surface collection, or herniation. There are T2 signal changes within the central lyudmila and to lesser extent the supratentorial white matter, most likely chronic microangiopathy. The midline intracranial structures are normal. Cerebellar tonsils are normally positioned. Craniocervical junction is normal. Osseous marrow signal intensity remains homogeneous. No significant soft tissue abnormality is appreciated. IMPRESSION: - No acute intracranial findings. No acute infarcts, no enhancing lesions, and no retrocochlear pathology. - Chronic microangiopathy. Etat crible appearance of the basal ganglia bilaterally as the sequela of chronic hypertension. 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
[2017-10-14 22:28] VITALS: BP 118/80
[2017-10-15 06:00] VITALS: BP 112/60
--- NOTE | 2017-10-15 07:46 | PN- Housestaff ---
See Addendum Subjective Follow-up For: Mnire's disease Tele-Events Since Last Visit: Normal sinus rhythm, 5060 Subjective: No overnight events. The patient says that she has some mild dizziness occasionally but otherwise had a good night. She has no chest pain or shortness of breath. She feels ready to go home. Review of Systems Constitutional: Reports: no symptoms. EENTM: Reports: no symptoms. Cardiovascular: Reports: no symptoms. Respiratory: Reports: no symptoms. Gastrointestinal: Reports: no symptoms. Genitourinary: Reports: no symptoms. Musculoskeletal: Reports: no symptoms. Skin: Reports: no symptoms. Neurological/Psychological: Reports: see HPI. Hematologic/Endocrine: Reports: no symptoms. Immunologic/Allergic: Reports: no symptoms. Objective Last 24 Hrs of Vital Signs/I&O Vital Signs Date Time Temp Pulse Resp B/P B/P Pulse O2 O2 Flow FiO2 Mean Ox Delivery Rate 10/15 0600 98.7 75 18 112/60 94 10/14 2228 97.9 75 20 118/80 95 Room Air 10/14 1400 97.9 62 20 124/78 96 10/14 0800 Room Air Intake & Output 10/15 0800 10/15 0000 10/14 1600 Intake Total 240 480 480 Output Total Balance 240 480 480 Intake, Oral 240 480 480 Patient 59.506 kg Weight Physical Exam General Appearance: Alert, Oriented X3, Cooperative, No Acute Distress Cardiovascular: Regular Rate, Normal S1, Normal S2 Lungs: Clear to Auscultation, Normal Air Movement Current Medications: Current Medications Sig/Angle Start time Last Medication Dose Route Stop Time Status Admin Acetaminophen 650 MG Q6P PRN 10/13 1914 AC PO Aspirin 81 MG DAILY 10/13 1908 AC 10/14 PO 0816 Atorvastatin Calcium 20 MG 1700 10/14 1700 DC PO Atorvastatin Calcium 40 MG 1700 10/14 1700 AC PO Enoxaparin Sodium 40 MG DAILY 10/14 0900 AC 10/14 SC 0817 Assessment/Plan Assessment: Ms. Guo s a 66 yo female with h/o ADHD (no meds), hyperlipidemia, and depression who presented in the ED with c/o severe vertigo. Problem List: 1. Mnire's disease #Mnire's disease: Patient presents with episodic vertigo over the past 6 months with complete resolution of symptoms in between episodes. The episodes involve dizziness with room spinning, tinnitus, nausea, vomiting, forcing her to lie down. She does have chronic basal ganglia infarcts on MRI in August of this year but does not have any symptoms from this right now. Her neuro exam was benign including HINTS exam. Carotid Dopplers were negative. MRI yesterday showed a etat crible, indicative of chronic hypertension. This is puzzling given that the patient has never had high blood pressure and is on no antihypertensives. It did not show any new acute stroke or masses however. Neurology evaluated yesterday and believes she has Mnire's disease. She can likely be discharged today with follow-up with otolaryngology. -Neurology recommendations appreciated -Ondansetron for nausea -Consider starting loratadine, hydrochlorothiazide, ondansetron as needed, and alprazolam as needed for Mnire's disease. -Patient should avoid caffeine, alcohol, nicotine, MSG, and sodium restrict #Chronic medical problems: -Continue other medications DVT prophylaxis with enoxaparin Heart healthy diet, sodium restriction Full code Problem List: 1. Meniere disease Pain Ratin Pain Location: no Pain Goal: Remain pain free Pain Plan: see a/p Tomorrow's Labs & Rationales: no
[2017-10-15] MEDS ORDERED: ATORVASTATIN CA40 M1 PO ×2 (07:51→09:48)
[2017-10-15] MEDS ORDERED: ZOFRAN ODT4 M1 SL ×2 (07:51→09:48)
[2017-10-15] MEDS ORDERED: HYDROCHLOROTH12.5 M3 PO (07:51)
[2017-10-15] MEDS ORDERED: ALPRAZOLAM OD0.25 MG PO ×2 (07:51→09:48)
--- NOTE | 2017-10-15 07:54 | Patient Discharge Instructions ---
Discharge Instructions General Discharge Information You were seen/treated for: Mnire's disease Watch for these problems: Fever, chest pain, shortness of breath Special Instructions: Please take all medications as directed. Please follow-up with primary care and otolaryngology. Diet Continue normal diet: No Recommended Diet: 2-3g sodium per day Activity Full Activity/No Limits: Yes Acute Coronary Syndrome Inclusion Criteria At DC or during hospital stay patient has or had the following: ACS DIAGNOSIS No Discharge Core Measures Meds if any: Prescribed or Continued at Discharge Meds if any: NOT Prescribed or Continued at Discharge Congestive Heart Failure Inclusion Criteria At DC or during hospital stay patient has or had the following: CHF DIAGNOSIS No Discharge Core Measures Meds if any: Prescribed or Continued at Discharge Meds if any: NOT Prescribed or Continued at Discharge Cerebrovascular accident Inclusion Criteria At DC or during hospital stay patient has or had the following: CVA/TIA Diagnosis No Discharge Core Measures Meds if any: Prescribed or Continued at Discharge Meds if any: NOT Prescribed or Continued at Discharge Venous thromboembolism Inclusion Criteria VTE Diagnosis No VTE Type NONE VTE Confirmed by (Test) NONE Discharge Core Measures - Per Current guidelines, there needs to be overlap - treatment for the first 5 days of Warfarin therapy. - If discharged on Warfarin prior to 5 days of - overlap therapy, the patient will need to be - assessed for post discharge needs including - *Post discharge parental anticoagulation - *Warfarin and/or parental anticoagulation education - *Follow up date to check INR post discharge At least 5 days overlap therapy as Inpatient No Meds if any: Prescribed or Continued at Discharge Note: Overlap Therapy is Warfarin and Anticoagulant Meds if any: NOT Prescribed or Continued at Discharge
[2017-10-15] MEDS ORDERED: CLARITIN10 M1 PO ×2 (08:00→09:48)
--- NOTE | 2017-10-15 09:10 | Discharge Summary ---
Visit Information Visit Dates Admission Date: 10/13/17 Discharge Date: 10/15/17 Hospital Course Course Attending Physician: Barbara Munoz MD Primary Care Physician: Erica COX,[facility] Course: Ms. Brant go a 66 yo female with h/o ADHD (no meds), hyperlipidemia, and depression who presented in the ED with c/o severe vertigo. She was admitted to telemetry and treated for the following problems: 1. Mnire's disease #Mnire's disease: Patient presented with episodic vertigo over the past 6 months with complete resolution of symptoms in between episodes. The episodes involve dizziness with room spinning, tinnitus, nausea, vomiting, forcing her to lie down. She does have chronic basal ganglia infarcts on MRI in August of this year but does not have any symptoms from this right now. Her neuro exam was benign including HINTS exam. Carotid Dopplers were negative. MRI brain w/ constrast showed etat crible, indicative of chronic hypertension. This is puzzling given that the patient has never had high blood pressure and is on no antihypertensives. It did not show any new acute stroke or masses however. Neurology evaluated and believes she has Mnire's disease. She is being discharged on loratadine, ondansetron as needed, and alprazolam as needed. The patient should avoid caffeine, alcohol, nicotine, MSG, and sodium restrict. Because the patient's blood pressure is in the 110s, we opted not to give her a diuretic. She should follow-up with her primary care doctor and can consider starting a low-dose diuretic if the blood pressure can be monitored. #Chronic medical problems: Patient's other home medications were continued. Because the patient's cholesterol was noted to be high, we start her on atorvastatin. Allergies: Coded Allergies: Penicillins (Severe, THROAT CLOSING 10/13/17) Disposition Summary Disposition Principal Diagnosis: 1. Mnire's disease Additional Diagnosis: 1. Mnire's disease Discharge Disposition: home or self care Discharge Instructions General Discharge Information Code Status: Full Code Patient's Diet: Low-sodium diet Patient's Activity: As tolerated Follow-Up Instructions/Appts: Please take all medications as directed. Please follow-up with primary care and otolaryngology Medications at Discharge Discharge Medications: Stop taking the following medications: Bupropion HCl (Bupropion XL) 300 MG TAB.ER.24H ORAL DAILY Qty = 30 Continue taking these medications: Multiple Vitamin (Multivitamins) 1 EACH TABLET 1 Tablet ORAL DAILY Comments: NOT GIVEN IN HOSPITAL Aspirin (Ecotrin*) 81 MG TABLET.DR 1 Tablet ORAL DAILY Comments: Last Taken: 10/15/17 Time: 9:00 AM Start taking the following new medications: Loratadine (Claritin) 10 MG TABLET 1 Tablet ORAL DAILY Qty = 30 No Refills Instructions: . Comments: Last Taken: 10/15/17 Time: 11:00 AM Alprazolam (Alprazolam Odt) 0.25 MG TAB.RAPDIS 1 Tablet ORAL TWICE DAILY as needed for Dizziness Qty = 10 No Refills Instructions: . Comments: NOT GIVEN IN HOSPITAL Atorvastatin Calcium (Atorvastatin Calcium) 40 MG TABLET 40 Milligram ORAL 5 PM Qty = 30 No Refills Instructions: . Comments: NOT GIVEN IN HOSPITAL Ondansetron (Zofran Odt) 4 MG TAB.RAPDIS 1 Tablet SUBLINGUAL THREE TIMES DAILY as needed for Dizziness or nausea Qty = 30 No Refills Instructions: . Comments: NOT GIVEN IN HOSPITAL Copies To: Landon COX,Hesham Leon; Sayra COX,Mary Song; Erica COX,Andrea
== END 2017-10-15 12:50 ==
LOC: ERH 13:12 → ERHI 17:06 → 1NO 17:06 → ENRESERV 19:03 → ENTRNSPT 21:07 → EDTRNSPTSTS 21:13 → 1NO 21:35 → CMPTRNSPT 21:38 → 1NO 10-14 09:03 → ENPENDDIS 10-15 10:30 → 1NO 10-15 12:50
PROVIDERS: Physician Assistant Medical
DX: H81.09 Meniere's disease, unspecified ear (principal); F90.9 Attention-deficit hyperactivity disorder, unspecified type; E78.5 Hyperlipidemia, unspecified; F32.9 Major depressive disorder, single episode, unspecified; Z87.891 Personal history of nicotine dependence; Z79.82 Long term (current) use of aspirin; Z86.73 Personal history of transient ischemic attack (TIA), and cerebral infarction without residual deficits
CPT/HCPCS: 70552; 86317; 86618; 87798; 70553; 71046; 93005; 93010; 96372; 96374; A9579; G0378; J1650; J2405; J3360; J3490